=== PATIENT | male | born 1970 | race Caucasian/White ===

== ENCOUNTER 2024-03-02 10:16 | Emergency (ER) | payer OTHER ==
--- NOTE | 2024-03-02 10:23 | ERPHSYRPT ---
- History of Present Illness Time Seen by Provider: 03/02/24 10:23 Historian: patient Exam Limitations: no limitations Physician History: This is a 53-year-old white male patient who does not have a medical provider and presents with intermittent rectal bleeding with bowel movements over the last few days. Patient admits to drinking a few beers a day, each day. He de nies being diagnosed with liver disease or bleeding or clotting disorder. He is not on any anticoagulation therapy. He has never had a colonoscopy performed. He has no known history of hemorrhoidal disease. He has no known history of ulcer disease. He states he does have some mild generalized abdominal pain/pressure. He denies the presence of rectal pain or anal mass. Patient has not had any nausea vomiting or diarrhea symptoms. Timing/Duration: day(s) (5) Activities at Onset: none Abdominal Pain Onset Location: generalized abdomen Pain Radiation: no radiation Severity of Pain-Max: mild Modifying Factors: Improves With: defecating Associated Symptoms: denies symptoms Previous symptoms: no prior history, no recent treatment Allergies/Adverse Reactions: No Known Drug Allergies Allergy (Verified 03/02/24 10:38) Travel Risk - International Travel Have you traveled outside of the country in past 3 weeks: No - Emerging Infectious Disease Are you exhibiting symptoms associated with any current EIDs: No - Review of Systems Constitutional: No Symptoms Eyes: No Symptoms Ears, Nose, & Throat: No Symptoms Respiratory: No Symptoms Cardiac: No Symptoms Abdominal/Gastrointestinal: Abdominal Pain (Mild generalized), Hematochezia (Intermittently with bowel movements) Genitourinary Symptoms: No Symptoms Musculoskeletal: No Symptoms Skin: No Symptoms Neurological: No Symptoms Psychological: No Symptoms Endocrine: No Symptoms Hematologic/Lymphatic: No Symptoms Immunological/Allergic: No Symptoms All Other Systems: Reviewed and Negative - Past Medical History Pertinent Past Medical History: No - Past Surgical History Past Surgical History: No - Nursing Vital Signs Nursing Vital Signs: Initial Vital Signs Temperature 98.4 F 03/02/24 10:24 Pulse Rate 73 03/02/24 10:24 Blood Pressure 167/105 03/02/24 10:24 O2 Sat by Pulse Oximetry 95 03/02/24 10:24 Pain Scale Pain Intensity 6 - Physical Exam General Appearance: no apparent distress, alert Eye Exam: PERRL/EOMI, eyes nml inspection Ears, Nose, Throat Exam: normal ENT inspection, moist mucous membranes Neck Exam: normal inspection, non-tender, supple, full range of motion Respiratory Exam: normal breath sounds, lungs clear, No chest tenderness, No respiratory distress Cardiovascular Exam: regular rate/rhythm, normal heart sounds, normal peripheral pulses Gastrointestinal/Abdomen Exam: soft, normal bowel sounds, tenderness (Mild diffuse with palpation), guarding (Mild diffuse with palpation), No rebound Male Genitalia Exam: normal genitalia Rectal Exam: other (Normal external anal and perianal exam) Back Exam: normal inspection, normal range of motion, No CVA tenderness, No vertebral tenderness Extremity Exam: normal inspection, normal range of motion, pelvis stable Neurologic Exam: alert, oriented x 3, cooperative, crime lab analyst II-XII nml as tested, normal mood/affect, nml cerebellar function, nml station & gait Skin Exam: normal color, warm, dry Lymphatic Exam: No adenopathy SpO2 Interpretation: normal O2 Delivery: Room Air - Course Nursing assessment & vital signs reviewed: Yes Ordered Tests: Active Orders 24 hr Category Date Time Status IV Insertion STAT Care 03/02/24 11:00 Active ABDOMEN AND PELVIS W/0 CONTRAS [CT] Stat Exams 03/02/24 11:01 Completed AMYLASE Stat Lab 03/02/24 11:35 Completed CBC W DIFF Stat Lab 03/02/24 11:35 Completed CMP Stat Lab 03/02/24 11:35 Completed LIPASE Stat Lab 03/02/24 11:35 Completed PROTIME WITH INR Stat Lab 03/02/24 11:35 Completed Medication Summary Discontinued Medications Generic Name Dose Route Start Last Admin Trade Name Freq PRN Reason Stop Dose Admin Sodium Chloride 1,000 mls @ 999 mls/hr 03/02/24 11:00 03/02/24 11:28 Sodium Chloride 0.9% 1000 Ml IV 03/02/24 12:00 999 mls/hr .Q1H1M STA Administration Sodium Chloride Confirm 03/02/24 11:27 Sodium Chloride 0.9% 1000 Ml Administered 03/02/24 11:28 Dose 1,000 mls @ ud .ROUTE .STK-MED ONE Lab/Rad Data: Laboratory Result Diagrams 03/02/24 11:35 03/02/24 11:35 Laboratory Results 03/02/24 03/02/24 03/02/24 Range/Units 11:35 11:35 11:35 WBC 5.0 (4.0-10.5) x10^3/uL RBC 4.40 (4.1-5.6) x10^6/uL Hgb 14.3 (12.5-18.0) g/dL Hct 43.1 (42-50) % MCV 98.0 (78-100) fL MCH 32.5 H (26-32) pg MCHC 33.2 (32-36) g/dL RDW 11.9 (11.5-14.0) % Plt Count 243 (150-450) x10^3/uL MPV 9.5 (7.5-11.0) fL Gran % 55.5 (36.0-66.0) % Immature Gran % (Auto) 0.4 (0.00-0.4) % Nucleat RBC Rel Count 0.0 (0.00-0.1) % Eos # (Auto) 0.08 (0-0.5) x10^3/uL Immature Gran # (Auto) 0.02 (0.00-0.03) x10^3u/L Absolute Lymphs (auto) 1.78 (1.0-4.6) x10^3/uL Absolute Monos (auto) 0.32 (0.0-1.3) x10^3/uL Absolute Nucleated RBC 0.00 (0.00-0.01) x10^3u/L Lymphocytes % 35.5 (24.0-44.0) % Monocytes % 6.4 (0.0-12.0) % Eosinophils % 1.6 (0.00-5.0) % Basophils % 0.6 (0.0-0.4) % Absolute Granulocytes 2.79 (1.4-6.9) x10^3/uL Basophils # 0.03 (0-0.4) x10^3/uL PT 10.1 (9.4-12.5) SECONDS INR 0.92 (0.8-3.0) Sodium 141 (135-145) mmol/L Potassium 4.3 (3.5-5.1) mmol/L Chloride 110 H (98-107) mmol/L Carbon Dioxide 24 (22-30) mmol/L Anion Gap 11.6 (5-15) MEQ/L BUN 10 (9-20) mg/dL Creatinine 0.92 (0.66-1.25) mg/dL Estimated GFR 99.5 ML/MIN Glucose 105 (74-106) mg/dL Calcium 8.9 (8.4-10.2) mg/dL Total Bilirubin 0.40 (0.2-1.3) mg/dL AST 63 H (17-59) U/L ALT 70 H (0-50) U/L Alkaline Phosphatase 67 (38-126) U/L Serum Total Protein 8.4 H (6.3-8.2) g/dL Albumin 4.2 (3.5-5.0) g/dL Amylase 103 (30-110) U/L Lipase 130 (23-300) U/L - Progress Progress: unchanged Progress Note: 03/02/24 10:52 My medical decision making and the assignment of moderate complexity to this patient's medical issue today is based on review of the patient's past medical history, review of the patient's medication list, history present illness and physical findings on examination. The workup in this patient includes placement of intravenous line, CBC, CMP, PT/INR, amylase, lipase and CT scan of the abdomen pelvis without contrast. Differential diagnosis includes peptic ulcer disease colitis, diverticulitis, colonic polyps, colonic mass, hemorrhoidal disease, bleeding disorder, liver disease 03/02/24 12:00 The radiologist interpreted the CT scan of the abdomen pelvis without contrast. The impression states degenerative disc disease. No abdominal aortic aneurysm. No acute intra-abdominal or intrapelvic abnormality. 03/02/24 12:01 I interpreted the patient's laboratory data results. The patient has mildly elevated liver function test (transaminases) which fits with this patient's chronic alcohol use history. There are no other acute, emergent findings based on the patient's laboratory data results. Counseled pt/family regarding: lab results, diagnosis, need for follow-up, rad results Medical Desision Making - Diagnostic Testing Diagnostic test were ordered, analyzed, and reviewed by me: Yes Radiological Interpretation: Reviewed by me, Teleradiologist Report - Risk of complications The pt has a mod risk of morbidity or mortality based on: Need for prescription drug management - Departure Departure Disposition: Home Clinical Impression: Rectal bleed, Elevated liver transaminase level Condition: Stable Critical Care Time: No Referrals: DOCTOR,NO FAMILY [Primary Care Provider] - Follow up/PCP as directed Additional Instructions: Drink plenty of clear liquids. Avoid alcohol use. Avoid fatty greasy spicy foods. Take medications as prescribed. Call a primary care provider from the list provided to make arrangements for follow-up appointment to arrange to be seen in the next 3 to 5 days. Discussed with the provider referral to a cane pusher they can perform an upper endoscopy and colonoscopy. Prescriptions: Famotidine 20 mg [Pepcid 20 MG] 20 mg PO DAILY #10 tablet
[2024-03-02 10:38] VITALS: PULSE 73; TEMP 98.4
[2024-03-02] MEDS ORDERED: Sodium Chloride 0.9% 1000 ML 1,000 ML ONE (11:27)
[2024-03-02] MEDS: Sodium Chloride 0.9% 1000 ML 1,000 ML IV STA (11:28)
[2024-03-02 11:41] LABS: Absolute Neutrophil Ct (ANC) 2.79 x10^3/uL (1.4-6.9); BASOPHIL % 0.6 % (0.0-0.4); Basophil (Absolute #) 0.03 x10^3/uL (0-0.4); Eosinophil % 1.6 % (0.00-5.0); Eosinophil (Absolute #) 0.08 x10^3/uL (0-0.5); Hematocrit 43.1 % (42-50); Hemoglobin 14.3 g/dL (12.5-18.0); IMMATURE GRAN # 0.02 x10^3u/L (0.00-0.03); IMMATURE GRAN % 0.4 % (0.00-0.4); Lymphocyte (Absolute #) 1.78 x10^3/uL (1.0-4.6); Lymphocytes % 35.5 % (24.0-44.0); Mean Corpuscular Hemoglobin 32.5 pg (26-32); Mean Corpuscular Hgb Concent. 33.2 g/dL (32-36); Mean Platelet Volume 9.5 fL (7.5-11.0); Monocyte (Absolute #) 0.32 x10^3/uL (0.0-1.3); Monocytes % 6.4 % (0.0-12.0); Neutrophil % 55.5 % (36.0-66.0); Platelet Count 243 x10^3/uL (150-450); Red Cell Distribution Width 11.9 % (11.5-14.0)
[2024-03-02 11:54] LABS: INR 0.92 (0.8-3.0); PROTIME 10.1 SECONDS (9.4-12.5)
[2024-03-02 11:55] LABS: ALBUMIN 4.2 g/dL (3.5-5.0); ANION GAP 11.6 MEQ/L (5-15); BILIRUBIN,TOTAL 0.4 mg/dL (0.2-1.3); Calcium 8.9 mg/dL (8.4-10.2); Creatinine 1 0.92 mg/dL (0.66-1.25); EST GLOMERULAR FILTRATION RATE 99.5 ML/MIN; Potassium 4.3 mmol/L (3.5-5.1); Total Protein 8.4 g/dL (6.3-8.2)
--- NOTE | 2024-03-02 11:56 | XRAY ---
Indication: Abdomen pain. Multiple contiguous axial images obtained through the abdomen and pelvis without contrast. Comparison: None Lung bases demonstrate bibasilar subsegmental atelectasis/scarring, right greater on left. Small right middle lobe calcified granuloma. No infiltrate or effusion. Heart not enlarged. Incidental chunky right infrahilar calcified nodes. Noncontrasted stomach and bowel loops appear nonobstructed with normal appendix. A few tiny splenic calcified granulomas. No free fluid/air. Remaining liver, gallbladder, pancreas, spleen, adrenal glands, kidneys, ureters, and bladder are unremarkable for noncontrast exam. Mild scattered aortoiliac calcifications without AAA. Osseous structures intact with L5-S1 broad-based disc bulge and vacuum disc phenomena. Small fatty bilateral inguinal hernias. Impression: 1. Chronic findings including atelectasis/scarring, arteriosclerotic disease, L5-S1 degenerative disc disease, fatty bilateral inguinal hernias, and old granulomatous disease. 2. Remaining CT abdomen/pelvis without contrast exam is negative.
[2024-03-02 12:13] VITALS: BP 148/90; O2SAT 95
== END 2024-03-02 12:20 | disposition home or self-care (01) ==
LOC: ED 10:16
DX: K62.5 Hemorrhage of anus and rectum (principal); R74.01 Elevation of levels of liver transaminase levels; R10.84 Generalized abdominal pain
CPT/HCPCS: 36000; 36415; 74176; 80053; 82150; 83690; 85025; 85610; 99284